=== PATIENT | female | born 1970 | race African-American/Black ===

== ENCOUNTER 2020-07-08 15:59 | Emergency (ER) | payer OTHER, SELFPAY ==
--- NOTE | ~2020-07-08 | US_ITS ---
EXAMINATION: US abdomen complete EXAM DATE: 07/08/2020 17:06 INDICATION: Hepatomegaly. TECHNIQUE: Multiple grayscale and Doppler images of the complete abdomen were obtained (by a technolo gist who performed the scan) and subsequently reviewed. There is no prior study for comparison. FINDINGS: The abdominal aorta is normal in caliber. Visualized portion IVC is patent. The pancreatic head a nd body are normal in appearance. The pancreatic tail is not visualized. Liver is hyperechoic and suspected to be enlarged. No liver surface nodularity. There are no focal li ene lesions identified. There is no evidence of intrahepatic biliary duct dilation. Portal venous flow was seen in the hepatopedal, normal direction and has normal Doppler waveform. Common bile duct measures 5 mm, which is normal. The gallbladder wall is normal in thickness, with ex pected amount of distention. No sonographic evidence of pericholecystic fluid. There is no cholelit hiases. Technologist performing exam reports patient did not demonstrate sonographic Resendiz's sign. Please note that this sign is less reliable in patients who have received pain medication. Right kidney: There is normal contour and echogenicity. It measures 12.4 x 4.6 x 6.7 centimeters. There are no focal renal lesions identified. There is no hydronephrosis. Left kidney: There is normal contour and echogenicity. It measures 10.1 x 6.0 x 4.6 centimeters. T here are no focal renal lesions identified. There is no hydronephrosis. The spleen measures 8 centimeters and is morphologically normal. IMPRESSION: 1. Hepatomegaly and hepatic steatosis. Reviewed, dictated and finalized at location A.
[2020-07-08 16:01] VITALS: BP 180/115; PULSE 120; RESP 18; TEMP 36.3; O2SAT 100
[2020-07-08 16:15] LABS: Basophils Absolute Auto 0.1 K/mm3 (0.0-0.1); Basophils Percent Auto 0.9 % (0.2-1.2); Eosinophils Absolute Auto 0.1 K/mm3 (0-0.3); Eosinophils Percent Auto 0.7 % (0-4.4); Hematocrit 38.7 % (37.0-47.0); Hemoglobin 13.4 g/dL (12.0-15.0); Immature Granulocyte Absolute 0.02 K/mm3 (0.00-0.031); Immature Granulocyte Percent A 0.2 % (0-0.5); Lymphocytes Absolute Auto 2.44 K/mm3 (0.9-3.2); Lymphocytes Percent Auto 30.1 % (18.3-44.2); Mean Corpuscular HGB Conc 34.6 g/dl (32-36); Mean Corpuscular Hemoglobin 37.1 pg (26-34); Mean Corpuscular Volume 107.2 fl (80-100); Mean Platelet Volume 12.5 fl (7.4-10.4); Monocytes Absolute Auto 0.9 K/mm3 (0.1-0.6); Monocytes Percent Auto 11.5 % (2.6-8.5); Neutrophils Absolute Auto 4.6 K/mm3 (1.3-6.7); Neutrophils Percent Auto 56.6 % (45.5-73.1); Platelet Count Result 280 k/mm3 (150-375); Red Blood Count 3.61 M/mm3 (4.2-5.4); Red Cell Distribution Width 13.2 % (11.5-14.5); White Blood Count 8.1 K/mm3 (4.5-10.0)
[2020-07-08 16:32] LABS: Add Urine Microscopic? YES; Amorphous Sediment Urine Few; Appearance Urine Cloudy (Clear); Bacteria Urine Trace /hpf; Bilirubin Urine 2+ (Negative); Blood Urine 1+ (Negative); Color Urine Amber (Yellow); Glucose Urine UA Negative (Negative); Ketones Urine Trace mg/dL (Negative); Leukocyte Esterase Ur 1+ LEU/UL (Negative); Mucus Urine Heavy /lpf; Nitrate Urine Negative (Negative); Protein Urine 2+ mg/dL (Negative); Specific Grav Ur 1.029 (1.001-1.035); Squamous Epithelial Cell Urine Many /hpf (Few)
[2020-07-08 16:37] LABS: Albumin Level 4.9 g/dL (3.5-5.1); Alkaline Phosphatase 263 U/L (38-126); Anion Gap 12 mmol/L (8-16); Aspartate Amino Transferase 338 U/L (14-36); Bilirubin,Total 2.3 mg/dL (0.2-1.3); Blood Urea Nitrogen 14 mg/dL (7-17); Carbon Dioxide 34 mmol/L (22-30); Chloride 88 mmol/L (98-107); Estimated CRCL calculation 72 ml/min; Estimated Glomerular Filt Rate > 60; Glucose 177 mg/dL (65-105); Lipase 154 U/L (23-300); Potassium 3.1 mmol/L (3.4-5.0); Sodium 134 mmol/L (137-145)
[2020-07-08] MEDS: SODIUM CHLORIDE 0.9% IV 1,000 ML 999 ML IV CONT (17:02)
--- NOTE | 2020-07-08 17:02 | ED.GENADULT ---
HPI - General Adult General Chief complaint: Abdominal Pain Stated complaint: abd pain Time Seen by Provider: 07/08/20 16:24 History of Present Illness HPI narrative: Patient is a 50-year-old female who presents ER for evaluation of nausea and vomiting. Intermittent over the last couple months. Reports is usually worse in the mornings. Cannot tell if she has any acid reflux. Denies fevers or chills or sweats or diarrhea. Reports she went to see her PCP today who noted that her liver seemed enlarged wanted her to have a further evaluation. Patient reports she is a regular drinker and often will drink a pint of hard liquor. She reports she is cut down recently due to the nausea and vomiting. Related Data Allergies Allergy/AdvReac Type Severity Reaction Status Date / Time No Known Allergies Allergy Unknown Verified 07/08/20 16:05 Review of Systems Review of Systems: All systems reviewed & are unremarkable except as noted in HPI and below Constitutional: Constitutional: Denies chills, Denies fever(s) and Denies weakness ENT: Denies nasal congestion and Denies sore throat Respiratory: Respiratory: Denies cough and Denies dyspnea Gastrointestinal: Gastrointestinal: Denies abdominal pain, Denies bloating, Denies heartburn, Denies diarrhea, Reports nausea and Reports vomiting PMFSH Past Medical History Medical History (Updated 07/08/20 @ 17:40 by Keenan Gale MD) Healthy female adult Surgical History Surgical History (Updated 07/08/20 @ 17:07 by Keenan Gale MD) History of section Social History Social History (Updated 07/08/20 @ 17:07 by Keenan Gale MD) Alcohol intake: current Gender identity (if verbalized by the patient): Female Exam Narrative: Exam Narrative: GENERAL: Well-appearing, well-nourished, and in no acute distress. HEAD: Normocephalic, atraumatic. CHEST: Clear to auscultation. No respiratory distress. HEART: Tachycardic and regular. Normal peripheral pulses. ABDOMEN: Soft, nontender, nondistended, hepatomegaly noted, normal active bowel sounds. EXTREMITIES: Normal range of motion. No edema. SKIN: Warm, dry, no rash. NEURO: Alert and oriented x3. PSYCH: Normal mood and affect. Course Course Emergency Course: Patient hydrated. She feels improved and is asking for discharge. She has been informed of the results and need to stop drinking alcohol. Verbalized understanding. Discharge home. Vital Signs Vital signs: Vital Signs Temperature 97.4 F L 07/08/20 16:01 Pulse Rate 120 H 07/08/20 16:01 Respiratory Rate 18 07/08/20 16:01 Blood Pressure 180/115 H 07/08/20 16:01 Pulse Oximetry 100 07/08/20 16:01 Temperature 97.4 F L 07/08/20 16:01 Pulse Rate 120 H 07/08/20 16:01 Respiratory Rate 18 07/08/20 16:01 Blood Pressure 180/115 H 07/08/20 16:01 Pulse Oximetry 100 07/08/20 16:01 Medical Decision Making Vital Signs Vital Signs: Vital Signs Temperature 97.4 F L 07/08/20 16:01 Pulse Rate 120 H 07/08/20 16:01 Respiratory Rate 18 07/08/20 16:01 Blood Pressure 180/115 H 07/08/20 16:01 Pulse Oximetry 100 07/08/20 16:01 Temperature 97.4 F L 07/08/20 16:01 Pulse Rate 120 H 07/08/20 16:01 Respiratory Rate 18 07/08/20 16:01 Blood Pressure 180/115 H 07/08/20 16:01 Pulse Oximetry 100 07/08/20 16:01 Lab Data Result diagrams: 07/08/20 16:07 07/08/20 16:07 Labs: Lab Results 07/08/20 07/08/20 07/08/20 Range/Units 16:07 16:07 16:13 WBC 8.1 (4.5-10.0) K/mm3 RBC 3.61 L (4.2-5.4) M/mm3 Hgb 13.4 (12.0-15.0) g/dL Hct 38.7 (37.0-47.0) % MCV 107.2 H (80-100) fl MCH 37.1 H (26-34) pg MCHC 34.6 (32-36) g/dl RDW 13.2 (11.5-14.5) % Plt Count 280 (150-375) k/mm3 MPV 12.5 H (7.4-10.4) fl Immature Gran % (Auto) 0.2 (0-0.5) % Neut % (Auto) 56.6 (45.5-73.1) % Lymph % (Auto) 30.1 (18.3-44.2) % [place] % (Auto) 11.5 H
[2020-07-08 17:04] LABS: Alanine Aminotransferase 122 U/L (4-35)
[2020-07-08 17:58] VITALS: BP 132/68; PULSE 98; RESP 18; O2SAT 99
== END 2020-07-08 18:00 | disposition home or self-care (01) ==
PROVIDERS: Emergency Medicine; Emergency Provider Emergency Medicine; PCP Emergency Medicine
DX: K70.10 Alcoholic hepatitis without ascites (principal)
CPT/HCPCS: 36415; 76700; 80053; 81001; 81025; 83690; 85025; 87086; 96360; 99284; J7030

== ENCOUNTER 2023-04-11 01:20 | Inpatient (IN) | payer OTHER, SELFPAY ==
[2023-04-11] VITALS (41 sets, daily range): BP systolic 100–136; BP diastolic 65–103; PULSE 70–109; RESP 12–24; TEMP 36.3–36.9; O2SAT 97–100; BMI 20.3
--- NOTE | ~2023-04-11 | XR_ITS ---
EXAMINATION: XR chest 1V portable DATE: 04/11/2023 20:35 INDICATION: Altered mental status TECHNIQUE: frontal view of the chest was obtained. COMPARISON: None FINDINGS: The lungs are clear with no focal airspace opacities, pulmonary edema, pleural effusion or pneumothor ax. The cardiomediastinal silhouette is normal. 30 degrees thoracic levoscoliosis. IMPRESSION: 1. No acute cardiopulmonary disease. Reviewed, dictated and finalized at location A. ING AND BUFFING MACHINE OPERATOR
--- NOTE | ~2023-04-11 | CT_ITS ---
Non-contrast CT scan of the Abdomen and Pelvis Clinical indication: Liver/renal failure Technique: 2.5 mm axial scans were obtained through the abdomen and pelvis without intravenous or or al contrast. Dose reduction technique was used on this scan by utilizing automated exposure control a nd iterative reconstruction technique. The dose-length product (DLP) was 286.38 mGy-cm. Findings: Images through the lung bases reveal no abnormalities. There is no evidence of renal or ureteral calculi. The kidneys and the ureters are nondilated. There is diffuse fatty infiltration of liver. Probable gallbladder sludge. The spleen, pancreas, and adrenals appear normal. There is no aortic aneurysm. There is no evidence of bowel obstruction. Images through the pelvis were performed. There is no evidence of ascites or lymphadenopathy. Urinary bladder unremarkable. Possible exophytic uterine fibroid, but no other adnexal mass seen. Impression: Diffuse fatty infiltration of liver. Probable gallbladder sludge. Reviewed, dictated and finalized at [facility]. GREASER OPERATOR Impression: Diffuse fatty infiltration of liver. Probable gallbladder sludge.
--- NOTE | ~2023-04-11 | US_ITS ---
EXAMINATION: US abdomen limited DATE: 04/12/2023 10:31 INDICATION: Hyperbilirubinemia. TECHNIQUE: Multiple grayscale and Doppler ultrasound images of the abdomen were obtained. COMPARISON: Ultrasound 07/08/2020, CT abdomen and pelvis 04/11/2023 FINDINGS: Calcifications in the pancreas are consistent with chronic pancreatitis. There is diffuse h epatic steatosis. There is normal flow in main portal vein. The gallbladder is normal in size. No gal lstones or gallbladder wall thickening. There was no sonographic Resendiz sign. The common duct is norm al and measures 5 mm. IMPRESSION: 1. Diffuse hepatic steatosis. 2. Chronic pancreatitis. Reviewed, dictated and finalized at location A. [employer]
--- NOTE | ~2023-04-11 | CT_ITS ---
Non-contrast Head CT History: Altered mental status Technique: Axial non-contrast imaging of the brain was performed. Dose reduction technique was used on this scan by utilizing automated exposure control and iterative reconstruction technique. The dose -length product (DLP) was 605.33 mGy-cm. Findings: There is no evidence of intracranial hemorrhage, mass lesion, or acute infarct. Brain par enchyma appears normal. The ventricles and subarachnoid spaces are normal in size. The calvarium ap pears normal. The visualized paranasal sinuses and mastoid air cells are clear. Impression: No significant abnormality seen. Reviewed, dictated and finalized at location . CARRIER Impression: No significant abnormality seen.
--- NOTE | 2023-04-11 01:32 | ECG_ITS ---
Measurements Intervals [place] Rate: 90 P: 35 IA: 126 QRS: 29 QRSD: 84 T: 80 QT: 367 QTc: 449 Interpretive Statements SINUS RHYTHM WITH SINUS ARRHYTHMIA NONSPECIFIC T-WAVE ABNORMALITY ABNORMAL EKG NO PREVIOUS ECG AVAILABLE FOR COMPARISON Electronically Signed On 04-11-2023 8:42:05 REDEVELOPMENT SPECIALIST by Rodrigo Anderson M.D.
--- NOTE | 2023-04-11 01:33 | ED.GENADULT ---
HPI - General Adult General Chief complaint: Altered Mental Status Stated complaint: Confused since Tuesday Time Seen by Provider: 04/11/23 01:22 History of Present Illness HPI narrative: This is a 53-year-old female with history of alcoholism presenting with confusion for several days. She is typically in contact with her youngest daughter on a daily basis. The youngest daughter's not been able to get hold of her for 5 days. They called for a wellness check and when the police found her she refused medical care. However the daughter was still not able to get hold of her after that eventually EMS was summoned. They found the patient outside of her house at that time she seemed confused and the family was notified. She was then brought to the hospital for further evaluation. At this time the patient is A&O x3 but confused and making strange statements. For example she said shes confused because her brother yesterday (he did not) or that her daughter is holding a small baby (she is not.) Patient states her last drink several days ago. Related Data Allergies Allergy/AdvReac Type Severity Reaction Status Date / Time No Known Allergies Allergy Unknown Verified 07/08/20 16:05 [facility] Past Medical History Medical History (Updated 04/11/23 @ 05:21 by Home Reyna MD) Healthy female adult Surgical History Surgical History (Updated 07/08/20 @ 17:07 by Keenan Gale MD) History of section Social History Social History (Updated 07/08/20 @ 17:07 by Keenan Gale MD) Alcohol intake: current Gender identity (if verbalized by the patient): Female Exam Narrative: APPEARANCE: No apparent distress.A&O x3 Head: atraumatic. EYES: EOMI, Jaundiced NOSE: Atraumatic NECK: Trachea midline RESPIRATORY: No increased rate of breathing, CTAB CARDIOVASCULAR: RRR, ABDOMINAL: Non-distended, soft nontender no guarding or rebound MUSCULOSKELETAl: No obvious deformities NEURO: Alert. Moving 4/4 extremities SKIN:: Warm, dry. Normal color PSYCHIATRIC: Normal affect Course Vital Signs Vital signs: Vital Signs Pulse Rate 104 H 04/11/23 01:34 Respiratory Rate 16 04/11/23 01:34 Blood Pressure 117/91 H 04/11/23 01:34 Pulse Oximetry 100 04/11/23 01:34 Temperature 98.4 F 04/11/23 11:47 Pulse Rate 70 04/11/23 20:00 Respiratory Rate 20 04/11/23 20:00 Blood Pressure 113/84 04/11/23 20:00 Pulse Oximetry 100 04/11/23 20:00 Oxygen Delivery Room Air 04/11/23 07:13 Medical Decision Making MDM Narrative Medical decision making narrative: -Course: 50-year-old female with history of alcohol use disorder hypertension presenting with confusion. Workup significant for acute kidney failure and liver disease. Case was discussed with our hospitalist Dr. Farris who believes the patient should be transferred to a tertiary care center with hepatology. Patient has been placed on the waiting list at [facility] and [facility]. Case was discussed with Dr. Amor. We discussed possible dialysis for uremic encephalopathy, however as the patient is not admitted to hospital he is unable to perform dialysis. We will take a conservative approach and fluid challenge the patient and see if her kidneys respond. Patient signed out to the oncoming physician pending transfer. If her condition worsens she may need to be admitted at our hospital for dialysis/stabilization. ZYCH 0700: Patient signed out to oncoming physician pending transfer. ZYCH 1900: Resumed care. Repeat lab work showed improvement of kidney function with IV hydration. Liver enzymes are also trending down. However the patient had critically low phosphate, persistently low potassium. potassium, magnesium, phosphorus repletion started. Case was discussed with Dr. Farris. Recommendations regarding electrolyte repletion and starting meropenem for UTI were taken and the orders placed. Patient will be a
[2023-04-11] MEDS: SODIUM CHLORIDE 0.9% IV 1,000 ML 999 ML IV CONT ×2 (01:51→04:23)
[2023-04-11 01:52] LABS: Basophils Absolute Auto 0.1 K/mm3 (0.0-0.1); Basophils Percent Auto 0.6 % (0.2-1.2); Eosinophils Absolute Auto 0.1 K/mm3 (0-0.3); Eosinophils Percent Auto 0.5 % (0-4.4); Hematocrit 28.7 % (37.0-47.0); Hemoglobin 10.1 g/dL (12.0-15.0); Immature Granulocyte Absolute 0.06 K/mm3 (0.00-0.031); Immature Granulocyte Percent A 0.6 % (0-0.5); Immature Platelet Fraction Pct 24.3 % (0.9-11.2); Lymphocytes Absolute Auto 1.46 K/mm3 (0.9-3.2); Lymphocytes Percent Auto 15.2 % (18.3-44.2); Mean Corpuscular HGB Conc 35.2 g/dl (32-36); Mean Corpuscular Hemoglobin 34.4 pg (26-34); Mean Corpuscular Volume 97.6 fl (80-100); Monocytes Absolute Auto 0.6 K/mm3 (0.1-0.6); Monocytes Percent Auto 6.3 % (2.6-8.5); Neutrophils Absolute Auto 7.4 K/mm3 (1.3-6.7); Neutrophils Percent Auto 76.8 % (45.5-73.1); Nucleated Red Blood Cells Absolute Auto 0.2 K/mm3 (0.0-0.012); Platelet Count Result 125 k/mm3 (150-375); Red Blood Count 2.94 M/mm3 (4.2-5.4); Red Cell Distribution Width 17.1 % (11.5-14.5); White Blood Count 9.6 K/mm3 (4.5-10.0)
[2023-04-11 02:00] LABS: Ammonia < 9 umol/L (9-30); Ethanol < 10 mg/dL (<10)
[2023-04-11 02:01] LABS: INR 1.2
[2023-04-11 02:02] LABS: Partial Thromboplastin Time 34.1 SECONDS (22.3-36.8)
[2023-04-11 02:06] LABS: Alanine Aminotransferase 49 U/L (6-35); Albumin Level 4.5 g/dL (3.5-5.1); Alkaline Phosphatase 306 U/L (38-126); Anion Gap 27 mmol/L (8-16); Aspartate Amino Transferase 203 U/L (14-36); Bilirubin,Total 7.5 mg/dL (0.2-1.3); Blood Urea Nitrogen 107 mg/dL (7-17); Calcium 10.2 mg/dL (8.4-10.2); Carbon Dioxide 19 mmol/L (22-30); Chloride 83 mmol/L (98-107); Glucose 169 mg/dL (65-110); Lipase 1257 U/L (23-300); Magnesium 1.7 mg/dL (1.6-2.3); Phosphorus 1.5 mg/dL (2.5-4.5); Potassium 3.3 mmol/L (3.4-5.0); Sodium 129 mmol/L (137-145)
[2023-04-11 02:09] LABS: NT Pro B Type Natriuretic Pept 5220 pg/mL (19.9-100)
[2023-04-11 02:15] LABS: Estimated Glomerular Filt Rate 9
[2023-04-11 02:24] LABS: Glucose Point of Care 173 mg/dl (65-105)
[2023-04-11 02:49] LABS: Amphetamine Screen Urine Negative (Negative); Barbiturate Screen Urine Negative (Negative); Benzodiazepines Screen Urine Negative (Negative); Cannabinoid Screen Urine Negative (Negative); Cocaine Screen Urine Negative (Negative); Methadone Screen Urine Negative (Negative); Opiate Screen Urine Negative (Negative); Phencyclidine Screen Urine Negative (Negative)
[2023-04-11 02:50] LABS: Appearance Urine Turbid (Clear); Bilirubin Urine 3+ (Negative); Blood Urine 2+ (Negative); Color Urine Dark Yellow (Yellow); Glucose Urine UA Trace mg/dL (Negative); Ketones Urine Trace mg/dL (Negative); Leukocyte Esterase Ur 2+ LEU/UL (Negative); Nitrate Urine Positive (Negative); Protein Urine 2+ mg/dL (Negative); Specific Grav Ur 1.022 (1.001-1.035)
[2023-04-11 03:13] LABS: Add Urine Microscopic? YES
[2023-04-11 03:16] LABS: Influenza A QL RT-PCR Negative (Negative); Influenza B QL RT-PCR Negative (Negative); RSV RNA, RT-PCR Negative (Negative); SARS-CoV-2 RNA PCR Negative (Negative)
[2023-04-11 03:18] LABS: Bacteria Urine 4+ /hpf; Cellular Casts Urine Present /lpf; Mucus Urine Moderate /lpf
[2023-04-11 03:19] LABS: Squamous Epithelial Cell Urine Many /hpf (Few)
[2023-04-11] MEDS: SODIUM CHLORIDE 0.9% IV 1,000 ML 200 ML IV CONT (05:56)
[2023-04-11] MEDS: ONDANSETRON INJ 4 MG/2 ML VIAL IV PUSH (06:03)
[2023-04-11 06:07] LABS: Alanine Aminotransferase 38 U/L (6-35); Albumin Level 3.3 g/dL (3.5-5.1); Alkaline Phosphatase 255 U/L (38-126); Anion Gap 21 mmol/L (8-16); Aspartate Amino Transferase 157 U/L (14-36); Bilirubin,Total 5.5 mg/dL (0.2-1.3); Blood Urea Nitrogen 101 mg/dL (7-17); Calcium 8.5 mg/dL (8.4-10.2); Carbon Dioxide 17 mmol/L (22-30); Chloride 91 mmol/L (98-107); Glucose 111 mg/dL (65-110); Potassium 2.6 mmol/L (3.4-5.0); Sodium 129 mmol/L (137-145)
[2023-04-11 06:18] LABS: Estimated Glomerular Filt Rate 10
[2023-04-11] MEDS: POTASSIUM CHLORIDE 20 MEQ PACKET (FOR LIQUID) 40 MEQ PO ×2 (06:20→20:35)
[2023-04-11] MEDS: POTASSIUM CHLORIDE INJ 40 MEQ in SODIUM CHLORIDE 0.9% IV 500 ML 125 MEQ IVPB (06:43)
--- NOTE | 2023-04-11 13:44 | PC.NURSE ---
Iris with [facility] transfer center called for update on patient condition. Informed this RN [facility] is still full and will call when they have a bed.
--- NOTE | 2023-04-11 14:01 | PC.NURSE ---
Lunch tray ordered for patient
[2023-04-11 19:18] LABS: Basophils Percent Auto 0.3 % (0.2-1.2); Eosinophils Percent Auto 0.3 % (0-4.4); Hematocrit 22.8 % (37.0-47.0); Hemoglobin 7.9 g/dL (12.0-15.0); Immature Granulocyte Absolute 0.09 K/mm3 (0.00-0.031); Immature Granulocyte Percent A 1.4 % (0-0.5); Lymphocytes Absolute Auto 1.32 K/mm3 (0.9-3.2); Lymphocytes Percent Auto 21.2 % (18.3-44.2); Mean Corpuscular HGB Conc 34.6 g/dl (32-36); Mean Corpuscular Hemoglobin 34.3 pg (26-34); Mean Corpuscular Volume 99.1 fl (80-100); Mean Platelet Volume 12.6 fl (7.4-10.4); Monocytes Absolute Auto 0.7 K/mm3 (0.1-0.6); Monocytes Percent Auto 10.8 % (2.6-8.5); Neutrophils Absolute Auto 4.1 K/mm3 (1.3-6.7); Nucleated Red Blood Cells Absolute Auto 0.1 K/mm3 (0.0-0.012); Platelet Count Result 103 k/mm3 (150-375); Red Cell Distribution Width 17.6 % (11.5-14.5); White Blood Count 6.2 K/mm3 (4.5-10.0)
[2023-04-11 19:31] LABS: Alanine Aminotransferase 43 U/L (6-35); Albumin Level 3.4 g/dL (3.5-5.1); Alkaline Phosphatase 329 U/L (38-126); Alkaline Phosphatase 330 U/L (38-126); Anion Gap 20 mmol/L (8-16); Anion Gap 21 mmol/L (8-16); Aspartate Amino Transferase 223 U/L (14-36); Aspartate Amino Transferase 229 U/L (14-36); Bilirubin,Total 4.4 mg/dL (0.2-1.3); Blood Urea Nitrogen 96 mg/dL (7-17); Blood Urea Nitrogen 97 mg/dL (7-17); Calcium 8.7 mg/dL (8.4-10.2); Carbon Dioxide 13 mmol/L (22-30); Chloride 98 mmol/L (98-107); Glucose 119 mg/dL (65-110); Glucose 120 mg/dL (65-110); Magnesium 1.7 mg/dL (1.6-2.3); Sodium 131 mmol/L (137-145); Sodium 132 mmol/L (137-145)
[2023-04-11 19:35] LABS: Phosphorus < 1.0 mg/dL (2.5-4.5)
[2023-04-11 19:41] LABS: Estimated CRCL calculation 14 ml/min; Estimated Glomerular Filt Rate 14
[2023-04-11 19:42] LABS: Estimated CRCL calculation 13 ml/min; Estimated Glomerular Filt Rate 14
--- NOTE | 2023-04-11 20:23 | PM.IMHP ---
H&P: HPI History of Present Illness Date/Time: 04/11/23 20:23 Chief Complaint: altered mental status Narrative: This is a 53-year-old female with past medical history significant for alcohol dependence, patient was brought to the emergency room for evaluation due to altered mental status patient found with a house in disarray feces and urine and vomit to wear S breath throughout the house a full trash bag was found with empty bottles of alcohol, patient had been seen by neighbors speaking to herself while sitting out with non appropriate clothing for the weather. Patient states that she had a loss of consciousness several times waking up on the floor reminding herself last time going to the kitchen or bathroom and finding herself in a different part of the house, falling frequently. Preliminary workup in the emergency room on initial presentation was significant for chemistry panel showed a sodium of 129 chloride 85 BUN 107 creatinine of 6 potassium 3 platelet count [id number] hemoglobin obtain patient received fluids a repeat CBC showed a hemoglobin of 7.5 platelets [id number] MCV 99 phosphorous 1.5 bilirubin total of 7.5 AST 238 ALT 49 alk phos 306 brain natriuretic peptide upwards 5000 lipase 1200. urinalysis was significant for numerous WBCs present. Patient also complained of nausea vomiting diarrhea for several days, patient drinks 2/[address] of abdomen and pelvis was reported as: Non-contrast CT scan of the Abdomen and Pelvis Clinical indication: Liver/renal failure Technique:? 2.5 mm axial scans were obtained through the abdomen and pelvis without intravenous or oral contrast. Dose reduction technique was used on this scan by utilizing automated exposure control and iterative reconstruction technique. The dose-length product (DLP) was 286.38 mGy-cm. Findings:? Images through the lung bases reveal no abnormalities. There is no evidence of renal or ureteral calculi. The kidneys and the ureters are nondilated. There is diffuse fatty infiltration of liver. Probable gallbladder sludge. The spleen, pancreas, and adrenals appear normal.? There is no aortic aneurysm. ? There is no evidence of bowel obstruction. Images through the pelvis were performed. There is no evidence of ascites or lymphadenopathy. Urinary bladder unremarkable. Possible exophytic uterine fibroid, but no other adnexal mass seen. Impression: Diffuse fatty infiltration of liver. Probable gallbladder sludge. Non-contrast Head CT History: Altered mental status Technique:? Axial non-contrast imaging of the brain was performed. Dose reduction technique was used on this scan by utilizing automated exposure control and iterative reconstruction technique. The dose-length product (DLP) was 605.33 mGy-cm. Findings:? There is no evidence of intracranial hemorrhage, mass lesion, or acute infarct.? Brain parenchyma appears normal.? The ventricles and subarachnoid spaces are normal in size.? The calvarium appears normal.? The visualized paranasal sinuses and mastoid air cells are clear. Impression: No significant abnormality seen. EXAMINATION: XR chest 1V portable DATE: 04/11/2023 20:35 INDICATION: Altered mental status TECHNIQUE: frontal view of the chest was obtained. COMPARISON: None FINDINGS: The lungs are clear with no focal airspace opacities, pulmonary edema, pleural effusion or pneumothorax.? The cardiomediastinal silhouette is normal. 30 degrees thoracic levoscoliosis. IMPRESSION: 1. No acute cardiopulmonary disease. patient has been awaiting bed at tertiary facility Review of Systems Review of Systems: ROS unobtainable: Yes unobtainable due to mental status ( patient is circumstantial can not really contribute in a meaningful way ) [facility] Past Medical History Medical History (Updated 04/12/23 @ 02:26 by Anurag Farris MD) Healthy female adult Surgical History Surgical History (Updated 07/08/20 @ 17:07 by Keenan Brown
[2023-04-11] MEDS: MAGNESIUM SULF 2 GM/WATER 50ML 2 GM/50 ML BAG IVPB (20:35)
[2023-04-11] MEDS: MEROPENEM 1 GM/NS 100 ML 1 GM/100 ML BAG IVPB (20:43)
--- NOTE | 2023-04-11 22:28 | PC.NURSE ---
Hedy with [facility] transfer center called for update on patient status.
--- NOTE | 2023-04-11 22:59 | ADMGEN ---
This patient, Angelica Fair, was admitted to IMU Room 206- 2250 Patient/family oriented to hospital policies and general routines including ID bracelet, bed and alarms, visiting hours, pain management, procedures, bathroom and other care routines, personal items, smoking policy, room service/diet, and visiting hours. Information on how to activate the Rapid Response Team has been discussed. Patient/Family are encouraged to report perceived risks to care and to ask questions if they do not understand what they are told or what they should do.
[2023-04-11] MEDS: POTASSIUM PHOS,M-BASIC-D-BASIC 20 MMOL in SODIUM CHLORIDE 0.9% IV 250 ML 64.17 MMOL IVPB (23:21)
[2023-04-11] MEDS: SODIUM CHLORIDE 0.9% IV 1,000 ML 150 ML IV CONT (23:32)
[2023-04-12] VITALS (19 sets, daily range): BP systolic 103–122; BP diastolic 61–77; PULSE 65–94; RESP 14–18; TEMP 36.2–36.7; O2SAT 98–100
--- NOTE | 2023-04-12 | ECHO_ITS ---
Patient Info Name: Angelica Fair Age: 53 years : 1970 Gender: Female Ht: 64 in Wt: 118 lbs BSA: 1.55 m2 HR: 75 bpm BP: 105 / 61 mmHg Heart Rhythm: Sinus Rhythm Technical Quality: Good Exam Date: 04/12/2023 8:12 AM Exam Location: Echo Lab Patient Status: Inpatient Admit Date: 04/11/2023 Staff Ordering Physician: Anurag Farris MD Soap Worker: Danielle Lee RDCS Attending Provider: Anurag Farris MD Referring Physician: Brenton HORTA; Exam Type: CA echo doppler color flow Study Info Indications - elevated bnp Complete two-dimensional, color flow and Doppler transthoracic echocardiogram is performed. Summary 1. Complete two-dimensional, color flow and Doppler transthoracic echocardiogram is performed. 2. Left ventricular chamber dimension is normal. 3. Left ventricular systolic function is normal, estimated at 60-65%. 4. The left ventricular diastolic function is normal. 5. E/e' 7 is not elevated. 6. There is mild aortic valve sclerosis. 7. There is trace mitral valve regurgitation. 8. There is mild tricuspid valve regurgitation. 9. No pulmonary hypertension, estimated pulmonary arterial systolic pressure is 29 mmHg. 10. There is trace pulmonic regurgitation. Left Ventricle E/e' 7 is not elevated. Left ventricular chamber dimension is normal. Left ventricular systolic function is normal, estimated at 60-65%. The left ventricular diastolic function is normal. Right Ventricle Right ventricular systolic function is normal and with normal TAPSE 1.8 cm. Right ventricular chamber dimension is normal. Left Atria Left atrial chamber dimension is normal. Right Atria Right atrial chamber dimension is normal. Aortic Valve The aortic valve is trileaflet. There is mild aortic valve sclerosis. There is no aortic valve stenosis. There is no aortic valve regurgitation. Pulmonic Valve There is trace pulmonic regurgitation. Mitral Valve There is no mitral valve stenosis. There is trace mitral valve regurgitation. Tricuspid Valve There is mild tricuspid valve regurgitation. No pulmonary hypertension, estimated pulmonary arterial systolic pressure is 29 mmHg. Pericardium/Pleural There is no pericardial effusion. Inferior Vena Cava Normal inferior vena cava with >50% collapse upon inspiration consistent with normal right atrial pressure, 5 mmHg. Aorta The aortic root size at the sinus of Valsalva is normal. Left Ventricular Outflow Tract Name Value Normal LVOT 2D LVOT Diameter 2.0 cm LVOT Doppler LVOT Peak Gradient 3 mmHg LVOT Mean Gradient 2 mmHg LVOT VTI 17 cm LVOT VTI/AV VTI Ratio 0.8 LVOT Stroke Volume 51 ml LVOT CO 3.6 l/min LVOT CI 2.3 l/min/m2 Pulmonic Valve Name Value Normal RVOT Doppler
[2023-04-12] MEDS: chlordiazePOXIDE (*CRX) 25 MG CAPSULE 50 MG PO ×3 (05:06→18:44)
[2023-04-12] MEDS: MEROPENEM 500 MG in SODIUM CHLORIDE 0.9% IV 100 ML 200 ML IVPB (09:50)
[2023-04-12 11:44] LABS: Glucose Point of Care 118 mg/dl (65-105)
[2023-04-12] MEDS: PIPERACILLIN/TAZ 2.25G/NS 50ML 2.25 GM/50 ML BAG IVPB (14:36)
[2023-04-12 16:30] LABS: Glucose Point of Care 192 mg/dl (65-105)
--- NOTE | 2023-04-12 16:43 | PM.IMPN ---
Progress Note: A&P Assessment and Plan (1) Altered mental status: Code(s): R41.82 - Altered mental status, unspecified Status: Acute Assessment and Plan: likely secondary to alcohol intoxication dehydration acute illness starvation (2) Acute metabolic encephalopathy: Code(s): G93.41 - Metabolic encephalopathy Status: Acute Assessment and Plan: Improved; inappropriate affect (3) Acute kidney failure: Code(s): N17.9 - Acute kidney failure, unspecified Status: Acute Assessment and Plan: likely to be pre renal azotemia urine lytes pending renal ultrasound in a.m. strict intake and output daily nephrology consult (4) Acute alcoholic hepatitis: Code(s): K70.10 - Alcoholic hepatitis without ascites Status: Inactive Assessment and Plan: will obtain RUQ ultrasound in the morning (5) ANNIE (acute kidney injury): Code(s): N17.9 - Acute kidney failure, unspecified Status: Acute Assessment and Plan: Likely 2/2 dehydration (6) Thrombocytopenia: Code(s): D69.6 - Thrombocytopenia, unspecified Status: Acute (7) Anemia: Code(s): D64.9 - Anemia, unspecified Status: Acute Assessment and Plan: LIKELY SECONDARY TO ALCOHOL INTAKE AND POOR PER ORAL INTAKE (8) Alcohol dependence: Code(s): F10.20 - Alcohol dependence, uncomplicated Status: Acute Assessment and Plan: Cessation counseling, 5 minutes (9) Fatty infiltration of liver: Code(s): K76.0 - Fatty (change of) liver, not elsewhere classified Status: Acute Assessment and Plan: Likely 2/2 alcoholism (10) Hyponatremia: Code(s): E87.1 - Hypo-osmolality and hyponatremia Status: Acute Assessment and Plan: Monitor Na; (11) Hypochloremia: Code(s): E87.8 - Other disorders of electrolyte and fluid balance, not elsewhere classified Status: Acute Assessment and Plan: Monitor (12) Hypophosphatemia: Code(s): E83.39 - Other disorders of phosphorus metabolism Status: Acute Assessment and Plan: Replete and monitor (13) Hypomagnesemia: Code(s): E83.42 - Hypomagnesemia Status: Acute Assessment and Plan: Replete and monitor (14) Hypokalemia: Code(s): E87.6 - Hypokalemia Status: Acute Assessment and Plan: Replete and monitor (15) Elevated brain natriuretic peptide (BNP) level: Code(s): R79.89 - Other specified abnormal findings of blood chemistry Status: Acute Assessment and Plan: maybe 2/2 cardiomyopathy Time Spent With Patient Time with patient: 25 - 35 minutes Subjective Date/time seen: 04/12/23 16:43 Interval history: Seen and examined; She is being managed for acute encephalopathy, alcoholism, renal insufficiency. Review of Systems Review of Systems: ROS unobtainable: Yes unobtainable due to mental status ( patient is circumstantial can not really contribute in a meaningful way ) Exam Narrative: patient is laying in a stretcher Const: General: cooperative, comfortable, no acute distress, well developed, alert, awake, ill appearing and underweight Nutritional Appearance: underweight Orientation/consciousness: oriented to person, oriented to place and patient oriented x3 HENMT: Head: normal to inspection, normocephalic and atraumatic Ears: hearing grossly normal bilaterally Face/Nose/Sinus: normal facial exam Face and sinus: normal facial exam Eyes: General: appearance normal, both eyes and all related structures Sclera: scleral abnormality bilateral other ( icterus) Pupils: Equal, round and reactive pupils present EOM: EOMs intact bilaterally Neck: Neck: full ROM, no lymphadenopathy and no JVD Thyroid: thyroid normal Lymphatic: no lymphadenopathy noted Resp: Effort & Inspection: normal respiratory effort and able to speak in complete sentences Auscultation:
--- NOTE | 2023-04-12 17:33 | PM.DS ---
DS: Admitting Diagnosis Discharge Date 04/12/23 Admitting Diagnosis 1. Acute encephalopathy; metabolic 2. Alcohol dependence 3. Hypertension 4. GERD 5. Hypokalemia 6. Normocytic anemia 7. Hyponatremia 8. Hypokalemia 9. Acute renal insufficiency 10. Alcoholic liver disease 11. UTI 12. Elevated lipase; maybe 2/2 Acute pancreatitis 13. Hypophosphatemia 14. Elevated BNP; probable CHF DS: Discharge Diagnosis Discharge Diagnosis (1) Altered mental status: Code(s): R41.82 - Altered mental status, unspecified Status: Acute Assessment and Plan: likely secondary to alcohol intoxication dehydration acute illness starvation (2) Acute metabolic encephalopathy: Code(s): G93.41 - Metabolic encephalopathy Status: Acute Assessment and Plan: Improved; inappropriate affect (3) Acute kidney failure: Code(s): N17.9 - Acute kidney failure, unspecified Status: Acute Assessment and Plan: likely to be pre renal azotemia urine lytes pending renal ultrasound in a.m. strict intake and output daily nephrology consult (4) Acute alcoholic hepatitis: Code(s): K70.10 - Alcoholic hepatitis without ascites Status: Inactive Assessment and Plan: will obtain RUQ ultrasound in the morning (5) ANNIE (acute kidney injury): Code(s): N17.9 - Acute kidney failure, unspecified Status: Acute Assessment and Plan: Likely 2/2 dehydration (6) Thrombocytopenia: Code(s): D69.6 - Thrombocytopenia, unspecified Status: Acute (7) Anemia: Code(s): D64.9 - Anemia, unspecified Status: Acute Assessment and Plan: LIKELY SECONDARY TO ALCOHOL INTAKE AND POOR PER ORAL INTAKE (8) Alcohol dependence: Code(s): F10.20 - Alcohol dependence, uncomplicated Status: Acute Assessment and Plan: Cessation counseling, 5 minutes (9) Fatty infiltration of liver: Code(s): K76.0 - Fatty (change of) liver, not elsewhere classified Status: Acute Assessment and Plan: Likely 2/2 alcoholism (10) Hyponatremia: Code(s): E87.1 - Hypo-osmolality and hyponatremia Status: Acute Assessment and Plan: Monitor Na; (11) Hypochloremia: Code(s): E87.8 - Other disorders of electrolyte and fluid balance, not elsewhere classified Status: Acute Assessment and Plan: Monitor (12) Hypophosphatemia: Code(s): E83.39 - Other disorders of phosphorus metabolism Status: Acute Assessment and Plan: Replete and monitor (13) Hypomagnesemia: Code(s): E83.42 - Hypomagnesemia Status: Acute Assessment and Plan: Replete and monitor (14) Hypokalemia: Code(s): E87.6 - Hypokalemia Status: Acute Assessment and Plan: Replete and monitor (15) Elevated brain natriuretic peptide (BNP) level: Code(s): R79.89 - Other specified abnormal findings of blood chemistry Status: Acute Assessment and Plan: maybe 2/2 cardiomyopathy Plan 1. Acute encephalopathy; metabolic 2. Alcohol dependence 3. Hypertension 4. GERD 5. Hypokalemia 6. Normocytic anemia 7. Hyponatremia 8. Hypokalemia 9. Acute renal insufficiency 10. Alcoholic liver disease 11. UTI 12. Elevated lipase; maybe 2/2 Acute pancreatitis DS: Summary Hospital Course Reason for hospitalization: 1. Acute encephalopathy; metabolic 2. Alcohol dependence 3. Hypertension 4. GERD 5. Hypokalemia 6. Normocytic anemia 7. Hyponatremia 8. Hypokalemia 9. Acute renal insufficiency 10. Alcoholic liver disease 11. UTI 12. Elevated lipase; maybe 2/2 Acute pancreatitis 13. Hypophosphatemia 14. Elevated BNP; probable CHF Hospital Course: This is a 53-year-old female with past medical history significant for alcohol dependence, patient was brought to the emergency room for evaluation due to altered mental status patient found with a house in disarray feces and urine and
[2023-04-12] MEDS: POTASSIUM CHLORIDE 20 MEQ PACKET (FOR LIQUID) 40 MEQ PO (18:44)
[2023-04-12] MEDS: PANTOPRAZOLE SOD SESQUIHYDRATE 20 MG TAB PO (20:39)
--- NOTE | 2023-04-12 22:10 | PC.NURSE ---
Pt transferred to [facility] [address], bed 70-3 ([phone]). Pt's daughter, Nicole ([phone]) notified of transfer. Pt's son was also at bedside when [facility] arrived to transport pt.
== END 2023-04-12 22:10 | disposition other institution (70) | DRG 52 ==
LOC: ANHED 20:35 → ANHIMU 22:22
PROVIDERS: Admitting Provider Internal Medicine; Emergency Provider Emergency Medicine; PCP Emergency Medicine; Visit Provider Internal Medicine
DX: G93.41 Metabolic encephalopathy (principal); N17.9 Acute kidney failure, unspecified; K70.10 Alcoholic hepatitis without ascites; E87.1 Hypo-osmolality and hyponatremia; E87.8 Other disorders of electrolyte and fluid balance, not elsewhere classified; E83.39 Other disorders of phosphorus metabolism; E83.42 Hypomagnesemia; E87.6 Hypokalemia; D69.6 Thrombocytopenia, unspecified; D64.9 Anemia, unspecified; F10.20 Alcohol dependence, uncomplicated; I10 Essential (primary) hypertension; K21.9 Gastro-esophageal reflux disease without esophagitis; R29.6 Repeated falls; F17.210 Nicotine dependence, cigarettes, uncomplicated; Z20.822 Contact with and (suspected) exposure to COVID-19
CPT/HCPCS: 36415; 70450; 71045; 74176; 76705; 80053; 80307; 81001; 82140; 82948; 83690; 83735; 83880; 84100; 84443; 85025; 85055; 85610; 85730; 86850; 86900; 86901; 87040; 87086; 87637; 93005; 93306; 96361; 96365; 96366; 96375; 99285; A9270; J2185; J2405; J2543; J3411; J3475; J3480; J7030; J7040; J7050